=== PATIENT | male | born 1980 | race African-American/Black ===

== ENCOUNTER 2016-11-14 13:09 | Emergency (ER) | payer BC ==
[~2016-11-14] VITALS: Ht 185.4 cm; Wt 135.8 kg
[2016-11-14 16:56] LABS: HEMATOCRIT 42.6 % (38.0-50.0); MCH 27.9 PG (29.0-34.0); MCHC 34.3 G/DL (30.0-36.0); MCV 81.5 FL (86-99); MEAN PLAT.VOLUME 9.6 uM^3 (9.0-12.4); PLATELET COUNT 303 K/uL (156-360); RBC DIS.WIDTH-CV 11.8 % (11.8-14.6); RBC DIS.WIDTH-SD 34.5 % (39-53); RED BLOOD COUNT 5.23 M/uL (4.00-5.50); WHITE BLOOD COUNT 11.5 K/uL (4.1-10.2)
[2016-11-14 17:06] LABS: CHLORIDE 106 mEq/L (99-109); POTASSIUM 4.7 mEq/L (3.7-5.4); SODIUM 140 mEq/L (136-147)
[2016-11-14 17:08] LABS: GLUCOSE 112 mg/dL (70-99)
[2016-11-14 17:10] LABS: ANION GAP 11 MEQ/L (2-14)
[2016-11-14 17:12] LABS: GFR ESTIMATE (CALCULATED) > 59 mL/min/
[2016-11-14 17:13] LABS: UREA NITROGEN (BUN) 15 mg/dL (9-23)
[2016-11-14] MEDS ORDERED: AUGMENTIN875 MG PO (19:02)
[2016-11-14 20:57] VITALS: BP 190/110
== END 2016-11-14 20:57 | disposition home or self-care (01) ==
LOC: EME 13:09 → EXP 14:39
PROVIDERS: Physician Assistant
DX: J36 Peritonsillar abscess (principal); J45.909 Unspecified asthma, uncomplicated
CPT/HCPCS: 70491; 80048; 85027; 99281; 99284; J0696; J7030; J7050